=== PATIENT | male | born 2000 | race Caucasian/White ===

== ENCOUNTER 2018-04-04 16:13 | Emergency (ER) | payer SELFPAY ==
[~2018-04-04] VITALS: Ht 172.7 cm; Wt 136.1 kg
--- OUTSIDE RECORDS SUMMARY | 2018-04-04 16:17 | XMS REPORT ---
Author Author TITO CONSTANTINO Organization [employer] Address Unknown Phone Unavailable Care Team Providers Care Insulation Sprayer Name Role Phone TITO CONSTANTINO CP Unavailable Allergies, Adverse Reactions, Alerts Substance Reaction Event Type N.K.D.A. Info Not Available Non Drug Allergy Problems Problem Type Condition Code Onset Dates Condition Status Problem Dysmetabolic Syndrome X 277.7 Active Problem MENINGOCOCCAL DX V03.89 Active Problem Acquired acanthosis nigricans 701.2 Active Assessment Bronchitis J40 Active Problem Acute pharyngitis 462 Active Problem Other diseases of nasal cavity and sinuses 478.19 Active Problem Intestinal infection due to other organism, NEC 008.8 Active Problem Other general medical examination for administrative purposes V70.3 Active Problem GARDASIL (HPV) DX V04.89 Active Problem Other acne 706.1 Active Problem Obesity, unspecified 278.00 Active Medications Medication Code System Code Instructions Start Date End Date Status Dosage ProAir HFA [facility] [id number] 108 (90 Base) MCG/ACT Inhalation every 4 hrs prn Jun 19, 2015 2 puffs as needed Azithromycin [facility] [address]-88 250 MG Orally Once a day Jun 19, 2015 Jun 24, 2015 2 tablets on the first day, then 1 tablet daily for 4 days Procedures Procedure Coding System Code Date Office Visit, Est Pt., Level 3 CPT-4 26697 Jun 19, 2015 NEB/MDI RX INITIAL CPT-4 96170 Jun 19, 2015 Vital Signs Date/Time: Jun 19, 2015 Cardiac Monitoring Heart Rate 88 bpm Temperature 98.7 F Weight 256.8 lbs Wt Percentile 99.6 % Blood Pressure Diastolic 76 mmHg Blood Pressure Systolic 118 mmHg Results No Known Results Summary Purpose [employer] Submission
--- OUTSIDE RECORDS SUMMARY | 2018-04-04 16:17 | XMS REPORT ---
Author Author LEANA ALVES [facility] Address Unknown Care Team Providers Care Coil Winding Machines Set Up Mechanic Name Role Phone LEANA ALVES Unavailable PROBLEMS Type Condition ICD9-CM Code [id number] Code Onset Dates Condition Status SNOMED Code Problem GARDASIL (HPV) DX V04.89 Active 709678176 Problem Other acne 706.1 Active 30272175 Problem MENINGOCOCCAL DX V03.89 Active 70159276 Problem Other general medical examination for administrative purposes V70.3 Active 48465112 Problem Intestinal infection due to other organism, NEC 008.8 Active 69823740 Problem Dysmetabolic Syndrome X 277.7 Active 636863276 Problem Acute pharyngitis 462 Active 152972958 Problem Acquired acanthosis nigricans 701.2 Active 70848096 Problem Obesity, unspecified 278.00 Active 736833807 Problem Other diseases of nasal cavity and sinuses 478.19 Active 248810161 ALLERGIES No Known Allergies ENCOUNTERS Encounter Location Date Diagnosis [facility] [address] [id number] Feb, Dental caries K02.9 [facility] [address] [id number] Jan, Dental examination Z01.20 [facility] [id number] [place] [phone] Aug, Sports physical Z02.5 ; Exercise counseling Z71.89 and Dietary counseling Z71.3 [facility] [address] [phone] Jun, Bronchitis J40 [facility] [place] [address] [address] Oct, [facility] [place] [address] [address] Oct, [facility] [place] [id number] [address] Feb, [facility] [place] [address] [address] Feb, [facility] [place] [address] [address] Feb, [facility] [place] [address] [address] Feb, [facility] [place] [address] [address] Feb, [facility] [place] [address] [place] [address] Oct, [facility] [place] [address] [address] Aug, IMMUNIZATIONS No Known Immunizations SOCIAL HISTORY Never Assessed REASON FOR VISIT WALK IN PAIN PLAN OF CARE Activity Details Follow Up prn Reason:45 minute surg. TE VITAL SIGNS Blood pressure systolic 151 mmHg 2017-01-07 Blood pressure diastolic 92 mmHg 2017-01-07 MEDICATIONS Medication Instructions Dosage Frequency Start Date End Date Duration Status Amoxicillin 500 MG Orally every 8 hrs 1 capsule 8h 7 days Active RESULTS No Results PROCEDURES Procedure Date Ordered Result Body Site LTD ORAL EVALUATION - PROBLEM FOCUS January 07, 2017 INTRAORL-PERIAPICAL 1 FILM 54003 January 07, 2017 BITEWING - SINGLE FILM January 07, 2017 INSTRUCTIONS MEDICATIONS ADMINISTERED No Known Medications
--- OUTSIDE RECORDS SUMMARY | 2018-04-04 16:17 | XMS REPORT ---
Author Author BRISSA WHITEHEAD Organization [facility] Address [address] [place] [address] Care Team Providers Care Barrel Tester Name Role Phone VENTURA BRISSA Unavailable PROBLEMS Type Condition ICD9-CM Code [id number] Code Onset Dates Condition Status SNOMED Code Problem GARDASIL (HPV) DX V04.89 Active Problem Other acne 706.1 Active 30277587 Problem MENINGOCOCCAL DX V03.89 Active Problem Other general medical examination for administrative purposes V70.3 Active 64918646 Problem Intestinal infection due to other organism, NEC 008.8 Active 57137672 Problem Dysmetabolic Syndrome X 277.7 Active 215141014 Problem Acute pharyngitis 462 Active 245283475 Problem Acquired acanthosis nigricans 701.2 Active 17077320 Problem Obesity, unspecified 278.00 Active 532105621 Problem Other diseases of nasal cavity and sinuses 478.19 Active 864211386 ALLERGIES No Known Allergies SOCIAL HISTORY Never Assessed PLAN OF CARE Activity Details Follow Up prn Reason: VITAL SIGNS Height 66 in 2016-09-01 Weight 271.0 lbs 2016-09-01 Temperature 98.0 degrees Fahrenheit 2016-09-01 Heart Rate 76 bpm 2016-09-01 Respiratory Rate 18 2016-09-01 BMI 43.74 kg/m2 2016-09-01 Blood pressure systolic 130 mmHg 2016-09-01 Blood pressure diastolic 84 mmHg 2016-09-01 MEDICATIONS No Known Medications RESULTS No Results PROCEDURES Procedure Date Ordered Result Body Site VISUAL ACUITY SCREEN Sep 01, 2016 IMMUNIZATIONS No Known Immunizations
--- OUTSIDE RECORDS SUMMARY | 2018-04-04 16:18 | XMS REPORT | Continuity of Care Document ---
Author Author [facility] Address Unknown Phone Unavailable Allergies There is no data. Medications There is no data. Problems Date Dx Coded Attending Type Code Diagnosis Diagnosed By 04/03/2008 919.4 INSECT BITE NONVENOMOUS OF OTHER MULTIPLE AND UNSPECIFIED SITES WITHOUT INFECTION 04/03/2008 919.4 INSECT BITE NONVENOMOUS OF OTHER MULTIPLE AND UNSPECIFIED SITES WITHOUT INFECTION 04/03/2008 919.4 INSECT BITE NONVENOMOUS OF OTHER MULTIPLE AND UNSPECIFIED SITES WITHOUT INFECTION 04/03/2008 KAEL CRAWFORD MD 919.4 INSECT BITE NONVENOMOUS OF OTHER MULTIPLE AND UNSPECIFIED SITES WITHOUT INFECTION 04/03/2008 ENMANUEL SOLIS DO 919.4 INSECT BITE NONVENOMOUS OF OTHER MULTIPLE AND UNSPECIFIED SITES WITHOUT INFECTION 04/03/2008 DORINA JUAREZ APRN 919.4 INSECT BITE NONVENOMOUS OF OTHER MULTIPLE AND UNSPECIFIED SITES WITHOUT INFECTION 04/10/2008 682.9 CELLULITIS AND ABSCESS OF UNSPECIFIED SITES 04/10/2008 682.9 CELLULITIS AND ABSCESS OF UNSPECIFIED SITES 04/10/2008 682.9 CELLULITIS AND ABSCESS OF UNSPECIFIED SITES 04/10/2008 KAEL CRAWFORD MD 682.9 CELLULITIS AND ABSCESS OF UNSPECIFIED SITES 04/10/2008 ENMANUEL SOLIS DO 682.9 CELLULITIS AND ABSCESS OF UNSPECIFIED SITES 04/10/2008 DORINA JUAREZ APRN 682.9 CELLULITIS AND ABSCESS OF UNSPECIFIED SITES 03/08/2009 786.2 cough 03/08/2009 786.2 cough 03/08/2009 786.2 cough 03/08/2009 KAEL CRAWFORD MD 786.2 cough 03/08/2009 ENMANUEL SOLIS DO 786.2 cough 03/08/2009 DORINA JUAREZ APRN 786.2 cough 03/09/2009 488 INFLUENZA A 03/09/2009 488 INFLUENZA A 03/09/2009 488 INFLUENZA A 03/09/2009 TY LONDONO, KAEL 488 INFLUENZA A 03/09/2009 ADELE SOLIS DOE A 488 INFLUENZA A 03/09/2009 DORINA JUAREZ APRN A 488 INFLUENZA A 08/06/2012 008.8 GASTROENTERITIS, VIRAL 08/06/2012 008.8 GASTROENTERITIS, VIRAL 08/06/2012 008.8 GASTROENTERITIS, VIRAL 08/06/2012 TY LONDONO, KAEL 008.8 GASTROENTERITIS, VIRAL 08/06/2012 ENMANUEL SOLIS DO A 008.8 GASTROENTERITIS, VIRAL 08/06/2012 DORINA JUAREZ APRN A 008.8 GASTROENTERITIS, VIRAL 10/19/2012 462 sore throat 10/19/2012 478.19 nasal passage blockage (stuffiness) 10/19/2012 462 sore throat 10/19/2012 478.19 nasal passage blockage (stuffiness) 10/19/2012 TY LONDONO, KAEL 462 sore throat 10/19/2012 GERARDO CRAWFORD MDISTA 478.19 nasal passage blockage (stuffiness) 10/19/2012 ENMANUEL SOLIS DO A 462 sore throat 10/19/2012 ADELE SOLIS DOE A 478.19 nasal passage blockage (stuffiness) 10/19/2012 DORINA JUAREZ APRN A 462 sore throat 10/19/2012 DORINA JUAREZ APRN A 478.19 nasal passage blockage (stuffiness) 02/23/2013 278.00 OBESITY 02/23/2013 706.1 ACNE 02/23/2013 V70.3 SPORTS PHYSICAL 02/23/2013 TY LONDONO, KAEL 278.00 OBESITY 02/23/2013 TY LONDONO KAEL 706.1 ACNE 02/23/2013 TY LONDONO, KAEL V70.3 SPORTS PHYSICAL 02/23/2013 IRMA COLIN ENMANUEL A 278.00 OBESITY 02/23/2013 IRMA COLIN ENMANUEL A 706.1 ACNE 02/23/2013 IRMA COLIN ENMANUEL A V70.3 SPORTS PHYSICAL 02/23/2013 DORINA JUAREZ APRN A 278.00 OBESITY 02/23/2013 DORINA JUAREZ APRN A 706.1 ACNE 02/23/2013 DORINA JUAREZ APRN A V70.3 SPORTS PHYSICAL 03/01/2014 TY LONDONO, KAEL 701.2 ACQUIRED ACANTHOSIS NIGRICANS 03/01/2014 TY LONDONO, KAEL V03.89 MENINGOCOCCAL DX 03/01/2014 AKEL CRAWFORD MD V04.89 GARDASIL (HPV) DX 03/01/2014 ENMANUEL SOLIS DO 701.2 ACQUIRED ACANTHOSIS NIGRICANS 03/01/2014 ENMANUEL SOLIS DO V03.89 MENINGOCOCCAL DX 03/01/2014 ENMANUEL SOLIS DO V04.89 GARDASIL (HPV) DX 03/01/2014 DORINA JUAREZ APRN 701.2 ACQUIRED ACANTHOSIS NIGRICANS 03/01/2014 DORINA JUAREZ APRN V03.89 MENINGOCOCCAL DX 03/01/2014 DORINA JUAREZ APRN V04.89 GARDASIL (HPV) DX 03/03/2014 ENMANUEL SOLIS DO 277.7 METABOLIC SYNDROME 03/03/2014 DORINA JUAREZ APRN 277.7 METABOLIC SYNDROME Procedures Code [place] [address] STREP A (IN-HOUSE) 10/19/2012 52964 VISUAL ACUITY SCREEN 02/23/2013 39511 A1C (IN-HOUSE) 03/01/2014 47331 PURE TONE HEARING TEST AIR 03/01/2014 95918 ROUTINE VENIPUNCTURE 03/03/2014 29822 CMP 03/03/2014 05054 LIPID PANEL 03/03/2014 58606 T4 FREE 03/03/2014 05687 TSH 03/03/2014 Results There is no data. Encounters ACCT No. Visit Date/Time Discharge Status Pt. Type Provider Facility Loc./Unit Complaint [id number] 10/18/2014 09:53:00 10/18/2014 23:59:59 CLS Outpatient DORINA JUAREZ APRN [id number] 03/03/2014 07:59:00 03/03/2014 23:59:59 CLS Outpatient ENMANUEL SOLIS DO [id number] 03/01/2014 15:46:00 03/01/2014 23:59:59 CLS Outpatient KAEL CRAWFORD MD [id number] 08/06/2012 10:57:00 08/06/2012 23:59:59 CLS Outpatient [id number] 02/23/2013 09:35:00 Document Registration [id number] 10/19/2012 12:51:00 Document Registration
[2018-04-04] MEDS ORDERED: HYDR-4226 PO (16:27)
--- NOTE | 2018-04-04 16:28 | ED Lower Extremity ---
General Chief Complaint: Lower Extremity Stated Complaint: L FOOT INJ Source: patient Exam Limitations: no limitations History of Present Illness Date Seen by Provider: Apr 04, 2018 Time Seen by Provider: 16:23 Initial Comments To ER with left lateral foot pain and swelling. This occurred about 30 minutes ago when he was going downstairs and inverted and plantar flex his left foot during a fall. He has swelling and inability to bear weight due to pain. No pain at the ankle or knee. Onset: just prior to arrival Severity: moderate Pain/Injury Location: left foot Method of Injury: fell Modifying Factors: Worse With Movement Allergies and Home Medications Allergies Coded Allergies: No Known Drug Allergies (Unverified , 04/04/18) Home Medications Hydrocodone/Acetaminophen 1 Each Tablet, 1 EACH PO Q6H PRN for PAIN-MODERATE Prescribed by: LAUREL SANTIAGO on 04/04/18 3559 Patient Home Medication List Home Medication List Reviewed: Yes Review of Systems Constitutional: see HPI EENTM: see HPI Respiratory: no symptoms reported Cardiovascular: no symptoms reported Genitourinary: no symptoms reported Musculoskeletal: see HPI Skin: no symptoms reported Psychiatric/Neurological: No Symptoms Reported Past Jhqdwvs-Qxltub-Aolkyx Hx Patient Social History Recent Foreign Travel: No Contact w/Someone Who Travel: No Physical Exam Vital Signs Vital Signs - First Documented 04/04/18 16:21 Temp 97.4 Pulse 90 Resp 16 B/P (MAP) 152/97 (115) Pulse Ox 98 Capillary Refill : Height, Weight, BMI Height: '" Weight: lbs. oz. kg; BMI Method: General Appearance: WD/WN, no apparent distress Respiratory: no respiratory distress, no accessory muscle use Hips: bilateral hip non-tender, bilateral hip normal inspection, bilateral hip normal range of motion Legs: bilateral leg non-tender, bilateral leg normal inspection, bilateral leg normal range of motion Knees: bilateral knee non-tender, bilateral knee normal inspection, bilateral knee normal range of motion Ankles: bilateral ankle non-tender, bilateral ankle normal inspection, bilateral ankle normal range of motion Feet: left foot pain, left foot soft tissue tenderness, left foot swelling, left foot other (over the distal aspect of the fourth and fifth metatarsals dorsally there is swelling ecchymosis and tenderness to palpation. He is able to wiggle all of his toes with normal sensation and brisk capillary refill distal to this.) Neurologic/Psychiatric: alert, normal mood/affect, oriented x 3 Skin: normal color, warm/dry Progress/Results/Core Measures Results/Orders My Orders Orders - LAUREL SANTIAGO APRN Hydrocodone/Apap 5/325 Tablet (Lortab 5 (04/04/18 16:30) Foot, Left, 3 Views (04/04/18 16:22) Crutches (04/04/18 16:22) Post-Op Shoe (04/04/18 16:22) Medications Given in ED Current Medications Medications Dose Ordered Sig/Hannah Route Start Time Stop Time Status Last Admin Dose Admin Acetaminophen/ Hydrocodone Bitart 1 tab ONCE ONCE PO 04/04/18 16:30 04/04/18 16:31 DC 04/04/18 16:34 1 TAB Vital Signs/I&O 04/04/18 16:21 Temp 97.4 Pulse 90 Resp 16 B/P (MAP) 152/97 (115) Pulse Ox 98 Departure Communication (Admissions) Patient placed in a posterior short-leg splint Impression Primary Impression: Metatarsal fracture Disposition: HOME, SELF-CARE Condition: Stable Departure-Patient Inst. Decision time for Depature: 16:25 Referrals: RAUL TRIPLETT DO (PCP/Family) Primary Care Physician REGAN ARAUJO DPM, JOSEPH M DO IPSEN, BRIAN J MD OGDEN,TERRELL GATES MD,MARRY Pompa MD Patient Instructions: Foot Fracture (DC) Add. Discharge Instructions: 1. Go home and elevate the foot as much as possible. If you're sitting in a recliner for laying in bed place a couple of pillows beneath the foot. This will help with swelling. Apply an ice pack at one hour intervals for the rest of today to help with pain and swelling. Pain medication as directed. Use crutches and do not bear weight on left foot until cleared by orthopedics. Keep the splint on and dry at all times until cleared by orthopedics. Call an orthopedic surgeon of your choosing tomorrow to make an appointment to be seen. Scripts Hydrocodone/Acetaminophen ([place] 5-325 Tablet) 1 Each Tablet 1 EACH PO Q6H PRN for PAIN-MODERATE MDD 10, #20 TAB Prov: LAUREL SANTIAGO APRN 04/04/18 Work/School Note: Work Release Form Date Seen in the Emergency Department: Apr 04, 2018 Return to Work: Apr 10, 2018 LAUREL SANTIAGO APRN Apr 04, 2018 16:28
[2018-04-04] MEDS ORDERED: HYDROcodone/APAP 5 MG/325 MG (LORTAB) TAB PO ONE (16:30)
[2018-04-04 17:00] VITALS: BP 124/89
--- NOTE | 2018-04-04 17:01 | Diagnostic Imaging Report ---
Left foot at 451 hours. INDICATION: Injury. 3 views were obtained. FINDINGS: There is an oblique, displaced fracture extending through the shaft of the fifth metatarsal. The distal fracture fragment is displaced medially by approximately 1/3 the width of the metatarsal shaft. No other fracture or acute bony abnormality is noted. The Lisfranc joint does not seem to be abnormally widened. There is soft tissue edema over the fractured fifth metatarsal. IMPRESSION: There is a displaced fracture of the shaft of the fifth metatarsal. There is no acute bony abnormality noted otherwise. Dictated by: Dictated on workstation # [id number]
== END 2018-04-04 17:24 | disposition home or self-care (01) ==
LOC: EDUNIT# 16:13 → ER 16:14
DX: S92.352A Displaced fracture of fifth metatarsal bone, left foot, initial encounter for closed fracture (principal); W10.8XXA Fall (on) (from) other stairs and steps, initial encounter; X50.0XXA Overexertion from strenuous movement or load, initial encounter
CPT/HCPCS: 29515; 73630

== ENCOUNTER 2020-07-16 10:00 | Emergency (ER) | payer OTHER ==
[~2020-07-16] VITALS: Ht 175 cm; Wt 122.0 kg
[~2020-07-16 10:00] MED LIST: HYDR-4226 PO
[2020-07-16 10:15] VITALS: BP 150/91
--- NOTE | 2020-07-16 10:39 | ED Lower Extremity ---
General Chief Complaint: Lower Extremity Stated Complaint: RT KNEE PAIN Source: patient Exam Limitations: no limitations History of Present Illness Date Seen by Provider: Jul 16, 2020 Time Seen by Provider: 10:34 Initial Comments 20-year-old male presents to the emergency department today with a chief complaint of right knee and calf pain. Patient states that he was walking yesterday and planted his right foot and twisted and his knee "locked up". Patient states he had immediate pain. Did not have a fall. Twisted his ankle as well an inversion type injury. Patient denies any numbness tingling or weakness in the right lower extremity. No other complaints of illness or injury. All other review of systems reviewed and negative except as stated. Onset: yesterday Severity: moderate Pain/Injury Location: right knee, right ankle Method of Injury: twisted Modifying Factors: Improves With Cold Therapy Allergies and Home Medications Allergies Coded Allergies: No Known Drug Allergies (Unverified , 04/04/18) Home Medications Hydrocodone/Acetaminophen 1 Each Tablet, 1 EACH PO Q6H PRN for PAIN-MODERATE Prescribed by: LAUREL SANTIAGO on 04/04/18 3847 Patient Home Medication List Home Medication List Reviewed: Yes Review of Systems Constitutional: see HPI EENTM: no symptoms reported Respiratory: no symptoms reported Cardiovascular: no symptoms reported Gastrointestinal: no symptoms reported Genitourinary: no symptoms reported Musculoskeletal: see HPI, joint pain, muscle pain Skin: no symptoms reported Psychiatric/Neurological: No Symptoms Reported All Other Systems Reviewed Negative Unless Noted: Yes Past Uhlaoge-Myxloe-Wuibqb Hx Patient Social History Alcohol Use: Denies Use Recreational Drug Use: No Smoking Status: Never a Smoker 2nd Hand Smoke Exposure: No Recent Foreign Travel: No Contact w/Someone Who Travel: No Recent Hopitalizations: No Seasonal Allergies Seasonal Allergies: No Past Medical History Surgeries: No Respiratory: No Cardiac: No Neurological: No Genitourinary: No Gastrointestinal: No Musculoskeletal: No Endocrine: No HEENT: No Cancer: No Psychosocial: No Integumentary: No Blood Disorders: No Physical Exam Vital Signs Capillary Refill : Height, Weight, BMI Height: 5'8.00" Weight: 300lbs. oz. 136.405571ut; BMI Method:Stated General Appearance: WD/WN, no apparent distress Cardiovascular: regular rate, rhythm Respiratory: no respiratory distress, no accessory muscle use Hips: bilateral hip non-tender, bilateral hip normal inspection, bilateral hip normal range of motion Legs: right leg soft tissue tenderness (Calf tenderness to palpation) Knees: right knee joint effusion (mild) Ankles: right ankle non-tender, right ankle normal inspection, right ankle normal range of motion Feet: right foot non-tender, right foot normal inspection, right foot normal range of motion Neurologic/Tendon: normal sensation, normal motor functions, normal tendon functions Neurologic/Psychiatric: alert, normal mood/affect, oriented x 3 Skin: normal color Progress/Results/Core Measures Progress Progress Note : Time: 10:38 Progress Note 20yo male to the ER with calf/knee pain after a twisting injury yesterday. No large joint effusions. Joints of the right knee and ankle are stable. tender posterior calf muscle. patient encouraged to amabulate/bear weight. Alternate tylenol and ibuprofen as well as heat and ice. Departure Impression Primary Impression: Strain of right calf muscle Disposition: HOME, SELF-CARE Condition: Stable Departure-Patient Inst. Decision time for Depature: 10:37 Referrals: RAUL TRIPLETT DO (PCP/Family) Primary Care Physician Patient Instructions: Calf Stretches Add. Discharge Instructions: Continue to alternate Tylenol and ibuprofen as needed for pain. You can take 3 ibuprofen at a time every 6 hours with food for pain. Or you can take 2 naproxen/Aleve in the morning with food and 2 at night. Alternate heat and ice to the sore areas of your calf muscle. You can wear the knee sleeve as needed for support and comfort. Follow-up with your primary care provider as needed. GERSON ELDER MD Jul 16, 2020 10:39
== END 2020-07-16 10:45 | disposition home or self-care (01) ==
LOC: EDUNIT# 10:00 → ER 10:04
DX: S86.111A Strain of other muscle(s) and tendon(s) of posterior muscle group at lower leg level, right leg, initial encounter (principal); X50.1XXA Overexertion from prolonged static or awkward postures, initial encounter
CPT/HCPCS: 99283